=== PATIENT | male | born 1965 | race African-American/Black ===

== ENCOUNTER 2024-09-14 08:20 | Outpatient (CLI) | payer MEDICARE, SELFPAY ==
--- NOTE | ~2024-09-14 | XR_ITS ---
EXAM: XR wrist LT min 3V DATE: 09/14/2024 08:37 HISTORY: Left wrist pain . COMPARISON: None available. FINDINGS: Normal mineralization. No fracture or dislocation. No lytic or blastic lesion. Joint space s are maintained. No erosion or periosteal change. Soft tissues within normal limits. IMPRESSION: Unremarkable left wrist radiograph findings. Reviewed, dictated and finalized at location K. BURSEMENT SPEC
== END 2024-09-14 08:21 | disposition home or self-care (01) ==
LOC: MICIMG 08:26
PROVIDERS: PCP Physician Assistant; Visit Provider Physician Assistant
DX: M25.532 Pain in left wrist (principal)
CPT/HCPCS: 73110